=== PATIENT | male | born 1990 | race Caucasian/White ===

== ENCOUNTER 2021-04-28 18:02 | Emergency (ER) | payer SELFPAY ==
[2021-04-28 18:03] VITALS: BP 144/87; PULSE 88; RESP 16; TEMP 36.9; O2SAT 97; BMI 27.4
--- NOTE | 2021-04-28 18:30 | RAD_ITS ---
STUDY: X-RAY - RIGHT TIBIA AND FIBULA REASON FOR EXAM: Male, 31 years old. PAIN TECHNIQUE: 2 view(s) of the tibia and fibula were obtained. COMPARISON: None. FINDINGS: Normal visualized tibia. Normal visualized fibula. The soft tissue structures are unremarkable. RAD/Tibia & Fibula 2 Views IMPRESSION: Normal x-ray examination of the tibia and fibula. Electronically Signed: Ladan Spencer MD at 20:04 EST Tel , Service support ,
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
[2021-04-28] MEDS: Ibuprofen 400 MG Tablet 800 MG PO (18:37)
[2021-04-28 20:15] VITALS: BP 131/80; PULSE 79; RESP 16; O2SAT 96
== END 2021-04-28 21:21 | disposition home or self-care (01) ==
PROVIDERS: Emergency Provider Emergency Medicine
DX: S86.912A Strain of unspecified muscle(s) and tendon(s) at lower leg level, left leg, initial encounter (principal); S86.911A Strain of unspecified muscle(s) and tendon(s) at lower leg level, right leg, initial encounter; F17.200 Nicotine dependence, unspecified, uncomplicated; V80.52XA Occupant of animal-drawn vehicle injured in collision with other specified motor vehicle, initial encounter
CPT/HCPCS: 73590; 99284